=== PATIENT | female | born 1980 | race Caucasian/White ===

== ENCOUNTER 2016-09-04 05:28 | Emergency (ER) ==
--- NOTE | 2016-09-04 05:51 | EKG Report ---
Test Performed on : 09/04/2016 05:43:53 AM Test Reason : chest pain Blood Pressure : / mmHG Vent. Rate : 090 BPM Atrial Rate : 090 BPM P-R Int : 158 ms QRS Dur : 080 ms QT Int : 380 ms P-R-T Axes : 059 063 044 degrees QTc Int : 464 ms Normal sinus rhythm. Possible Left atrial enlargement Borderline ECG When compared with ECG of 01-JAN-2016 11:04, No significant change was found Unconfirmed Result
[2016-09-04] MEDS ORDERED: NITROGLYCERIN SL PRN (06:11)
[2016-09-04] MEDS ORDERED: ASPIRIN PO STA (06:11)
[2016-09-04 06:26] LABS: MANUAL DIFF NEEDED? NO
[2016-09-04 06:29] LABS: BASO% 0.5 % (0.0-0.8); EOS# 0.19 X1000 (0.0-0.7); EOS% 2.2 % (0.0-10.0); HEMATOCRIT 48.9 % (37.0-47.0); HEMOGLOBIN 16.3 g/dL (12.0-16.0); IMM GRAN# 0.04 X1000 (0.0-0.04); IMM GRAN% 0.5 % (0.0-0.5); LYMPH# 1.95 X1000 (1.2-3.4); MCH 32.3 PG (27-31); MCHC 33.3 g/dL (33-37); MCV 96.8 FL (81-99); MONO# 0.62 X1000 (0.11-0.59); MONO% 7.3 % (1.7-9.3); MPV 9.7 FL (7.4-10.4); NEUT% 66.5 % (42.2-75.2); PLT 386 X1000 (130-400); RBC 5.05 XMIL (4.2-5.4)
[2016-09-04 06:45] LABS: INR 1.08 (0.86-1.15); PROTIME 14.3 Seconds (12.1-15.5)
[2016-09-04 06:46] LABS: PTT PL 29.7 Seconds (22.6-43.9)
[2016-09-04 06:47] LABS: AGAP 13; ALBUMIN 4.4 g/dL (3.5-5.0); ALKALINE PHOSPHATASE 43 U/L (32-104); BUN 7 mg/dL (8-22); CALCIUM 9.4 mg/dL (8.8-10.2); CHLORIDE 104 mmol/L (98-107); CK PROFILE 44 U/L (24-173); COSMO 273; GOT 20 U/L (10-30); GPT 13 U/L (10-36); MAGNESIUM 2.1 mg/dL (1.5-2.7); POTASSIUM 3.2 mmol/L (3.5-5.1); SODIUM 138 mmol/L (136-145); TCO2 21 mmol/L (25-35); TOTAL PROTEIN 6.9 g/dL (6.3-8.3)
--- NOTE | 2016-09-04 07:03 | PROVIDER DOCUMENTATION ---
HPI-Chest Pain - General Chief Complaint: Chest Pain Stated Complaint: CHEST PAIN/NECK PAIN Time Seen by Provider: 09/04/16 06:05 Source: patient Allergies/Adverse Reactions: Patient Allergies Allergy/AdvReac Type Severity Reaction Status Date / Time Penicillins Allergy Mild RASH Verified 09/04/16 05:37 morphine Allergy ITCHING Verified 09/04/16 05:37 Home Medications: Home Medication List Medication Instructions Recorded Confirmed Last Taken Type Topiramate [Topamax] 200 mg PO DAILY PRN PRN 11/02/13 09/04/16 Unknown History Celecoxib [Celebrex] 200 mg PO DAILY 01/01/16 09/04/16 Unknown History Lamotrigine [Lamictal] 200 mg PO HS 01/01/16 09/04/16 Unknown History Meclizine HCl [Antivert] 25 mg PO TID PRN #20 tablet 01/01/16 09/04/16 Unknown Rx Ondansetron Odt [Zofran 8Mg Odt] 8 mg PO Q8H PRN PRN #10 tablet 01/01/16 Unknown Rx Rizatriptan [Maxalt] 1 tab PO DIRECTED 01/01/16 09/04/16 Unknown History Clonazepam 1 mg PO BID 09/04/16 09/04/16 Unknown History Hydrocodone/Acetaminophen [[place] 1 tab PO BID 09/04/16 09/04/16 Unknown History 7.5-325 Tablet] - History of Present Illness-CP Nature of Presenting Problem: 36 y/o WF with a PMHx o anxiety, depression, migraine and PTSD that present to the ED with a 4 hour h/o left lateral chest pain. Pain is reported to be sharp, constant, non-radiating. Initial intensity of 7/10. Current intensity of 7/10. Cough reported as an aggravating factor. No alleviating factors. ROS pertinent for cough. No other issues. Location: reports: other (left lateral) Chest Pain Radiation: reports: no radiation Quality of Pain: reports: sharp Severity in ED: moderate Onset/Duration: 4-6 hours ago Timing: still present Context/Activities at Onset: reports: none Modifying Factors: improves with: nothing Nitro Today/Relief: no nitro taken today Aspirin Treatment Today: no aspirin today Prior Chest Pain/Cardiac Workup: reports: no prior cardiac workup Similar Symptoms Previously?: No Review of Systems - Adult - REVIEW OF SYSTEMS - ADULT Constitutional: reports: no symptoms reported Eyes: reports: no symptoms reported Ears, Nose, Mouth & Throat: reports: no symptoms reported Cardiovascular: reports: chest pain Respiratory: reports: cough Gastrointestinal: reports: no symptoms reported Genitourinary: reports: no symptoms reported Musculoskeletal: reports: no symptoms reported Integumentary: reports: no symptoms reported Neurological: reports: no symptoms reported Psychiatric: reports: no symptoms reported Endocrine: reports: no symptoms reported Hematologic/Lymphatic: reports: no symptoms reported Allergic/Immunologic: reports: no symptoms reported Past History - Adult - PAST MEDICAL HISTORY-ADULT Review of Records: reports: Old Records Reviewed, Nursing Assessment Review, Medications Reviewed Major Childhood Illnesses: reports: denies history Gastrointestinal: reports: GERD Obstetrical/Gynecological: reports: endometriosis Neurological: reports: headaches/migraines Psychiatric: reports: anxiety, depression, ptsd Other Conditions: reports: denies history - PRIOR SURGERIES/PROCEDURES Surgical/Procedure History: reports: tonsillectomy - IMMUNIZATION STATUS Childhood Immunizations: See Nurse Assessment Flu Vaccine: See Nurse Assessment - FAMILY HISTORY Family History: reviewed, not pertinent - SOCIAL HISTORY Smoking: cigarettes, greater than 1 pack/day Substance Use: none/never, alcohol Alcohol Use Frequency: every day Number of drinks per typical drinking period:: 2 drinks Living Situation: alone Physical Exam-General - PHYSICAL EXAM-ADULT Initial Vital Signs Reviewed: Yes - CONSTITUTIONAL General Appearance: appears well, alert, no apparent distress. negative: slow to respond, obtunded - EYES Eyes: PERRL/EOMI, pink conjunctivae. negative: sclera injected, scleral icterus - HEAD, EARS, NOSE, MOUTH & THROAT HENMT: normocephalic/atraumatic, moist mucous membranes, normal ENT inspection. negative: tonsillar exudate - NECK Neck: non-tender, full range of motion, supple. negative: C-spine tenderness - RESPIRATORY Respiratory: chest non-tender, lungs clear, normal breath sounds. negative: accessory muscle use, crackles, rales, rhonchi, wheezing - CARDIOVASCULAR Cardiovascular: normal peripheral pulses, regular rate, rhythm, no murmur - CHEST (BREASTS) Chest/Breast: tenderness - GASTROINTESTINAL (ABDOMEN) Abdominal Exam: normal bowel sounds, non tender, soft. negative: distended, guarding, rigid, rebound, tenderness - GENITOURINARY Female Genitalia/Pelvic Exam: deferred Rectal Exam: deferred - LYMPHATIC Lymphatic: no adenopathy - MUSCULOSKELETAL Back Exam: no CVA tenderness. negative: muscle spasm Extremity: normal range of motion, non-tender. negative: deformity, erythema - SKIN Integumentary: normal color, normal turgor, warm/dry - NEUROLOGIC Neurologic: poison information specialist II-XII nml as tested, grossly normal, no motor/sensory deficits . negative: facial droop, focal weakness, motor weakness, sensory deficit - PSYCHIATRIC Psych/Mental Status: normal mood/affect, normal thought content, normal thought process, oriented x 3, depressed affect Progress - PLAN OF CARE/RESULTS Progress/Plan/Lab Results: Laboratory Tests 09/04/16 09/04/16 09/04/16 06:24 06:24 06:24 WBC 8.49 RBC 5.05 Hgb 16.3 H Hct 48.9 H MCV 96.8 MCH 32.3 H MCHC 33.3 RDW Std Deviation 15.7 H Plt Count 386 MPV 9.7 Immature Gran % (Auto) 0.5 Neut % (Auto) 66.5 Lymph % (Auto) 23.0 [place] % (Auto) 7.3 Eos % (Auto) 2.2 Baso % (Auto) 0.5 Immature Gran # (Auto) 0.04 Neut # (Auto) 5.65 Lymph # (Auto) 1.95 [place] # (Auto) 0.62 H Eos # (Auto) 0.19 Baso # (Auto) 0.04 PT INR APTT (Factor Assay) Sodium 138 Potassium 3.2 L Chloride 104 Carbon Dioxide 21 L Anion Gap 13 BUN 7 L Creatinine 1.0 H Estimated GFR/1.73 m2 > 60 BUN/Creatinine Ratio 7 Glucose 88 Calculated Osmolality 273 Calcium 9.4 Magnesium 2.1 Total Bilirubin 0.60 AST 20 ALT 13 Alkaline Phosphatase 43 Creatine Kinase 44 Troponin T [id number] Pept 19 Total Protein 6.9 Albumin 4.4 Globulin 3.0 Albumin/Globulin Ratio 2.0 09/04/16 09/04/16 06:24 06:24 WBC RBC Hgb Hct MCV MCH MCHC RDW Std Deviation Plt Count MPV Immature Gran % (Auto) Neut % (Auto) Lymph % (Auto) [place] % (Auto) Eos % (Auto) Baso % (Auto) Immature Gran # (Auto) Neut # (Auto) Lymph # (Auto) [place] # (Auto) Eos # (Auto) Baso # (Auto) PT 14.3 INR 1.08 APTT (Factor Assay) 29.7 Sodium Potassium Chloride Carbon Dioxide Anion Gap BUN Creatinine Estimated GFR/1.73 m2 BUN/Creatinine Ratio Glucose Calculated Osmolality Calcium Magnesium Total Bilirubin AST ALT Alkaline Phosphatase Creatine Kinase Troponin T < 0.010 [id number] Pept Total Protein Albumin Globulin Albumin/Globulin Ratio Orders Category Date Time Status Cardiac Monitoring DIRECTED Care 09/04/16 06:12 Active Saline Loc NOW Care 09/04/16 06:12 Active CHEST-2 VIEWS [RAD] Stat Exams 09/04/16 05:41 Taken CBC WITH ELECTRONIC DIFF [HEME] Stat Lab 09/04/16 06:24 Completed CK PROFILE [SP CHEM] Stat Lab 09/04/16 06:24 Completed COMPREHENSIVE METABOLIC PANEL [CHEM] Stat Lab 09/04/16 06:24 Completed MAGNESIUM [CHEM] Stat Lab 09/04/16 06:24 Completed PRO B-NATRIURETIC PEPTIDE Stat Lab 09/04/16 06:24 Completed [address]IME WITH INR PL [COAG] Stat Lab 09/04/16 06:[address] [COAG] Stat Lab 09/04/16 06:24 Completed TROPONIN T Stat Lab 09/04/16 06:24 Completed Aspirin Med 09/04/16 06:11 Discontinued 325 mg PO STAT STA Nitroglycerin Sl [Nitroglycerin] Med 09/04/16 06:11 Active 0.4 mg SL Q5M PRN PRN EKG [EKG] Stat Ther 09/04/16 05:41 Draft Vital Signs - 24 hr 09/04/16 09/04/16 09/04/16 05:33 06:06 06:15 Temperature 97.8 F Pulse Rate 102 H 89 91 H Respiratory 20 20 23 Rate Blood Pressure 120/77 123/85 124/92 O2 Sat by Pulse 97 98 95 Oximetry 09/04/16 06:45 Temperature Pulse Rate 93 H Respiratory 22 Rate Blood Pressure 120/89 O2 Sat by Pulse 98 Oximetry - EKG 1 Time of EKG reading by physician:: 05:43 EKG Read and Signed by:: Robin Castellanos Jr EKG Interpretation (*Must complete 3 of following elements*): Normal Rate: 90 Rhythm: sinus [place]: normal QRS: normal [place] Interval: normal ST Wave: normal - XRAY 1 XRAY Study: Chest Impression: Normal XRAY Interpretation: no acute disease Departure - Departure Time of Disposition Order: 07:46 DIAGNOSIS: Musculoskeletal pain GERD (gastroesophageal reflux disease) Qualifiers: Esophagitis presence: without esophagitis Qualified Code(s): K21.9 - Gastro- esophageal reflux disease without esophagitis Disposition: HOME 01 Certified Medical Emergency: Emergent Condition: Good Additional Instructions: Pt to follow up with PCP in 1-2 days ED Follow Up Instructions: You have been treated by a care provider in the Emergency Department. These instructions are being provided to you so you can have an understanding of how to care for yourself upon discharge. Upon discharge from the Emergency Department, you are responsible for making arrangements for follow-up care by a physician of your choice. Take all prescribed medications as directed. Return to the Emergency Department immediately for any new or worsening symptoms. You may call the Physician Referral phone number at [phone] to obtain a list of Physicians who are taking new patients.
[2016-09-04] MEDS ORDERED: G.I. COCKTAIL PO ONE (07:07)
--- NOTE | 2016-09-04 07:09 | Diag Imaging Result Document ---
PROCEDURE NAME: CHEST-2 VIEWS - 09/04/2016 FRONTAL AND LATERAL CHEST, TWO VIEWS: COMPARISON: Compared to 05/29/2014. FINDINGS: The lungs are well expanded. The heart is not enlarged. The vessels are not distended. No pneumonia. No free air beneath the diaphragm. No pleural effusions. IMPRESSION: No acute abnormality.
[2016-09-04 08:26] VITALS: BP 098/046
== END 2016-09-04 08:25 | disposition home or self-care (01) ==
LOC: P.ED 05:28
DX: K21.9 Gastro-esophageal reflux disease without esophagitis (principal); M79.1 Myalgia; R07.89 Other chest pain; R05 Cough; F41.9 Anxiety disorder, unspecified; F17.210 Nicotine dependence, cigarettes, uncomplicated; Z79.899 Other long term (current) drug therapy
CPT/HCPCS: 71020; 80053; 82550; 83735; 83880; 84484; 85025; 85610; 85730; 93005; 99284